=== PATIENT | male | born 1985 | race Caucasian/White ===

== ENCOUNTER 2018-05-23 12:51 | Emergency (ER) | payer SELFPAY ==
[~2018-05-23] VITALS: Ht 182.9 cm; Wt 80.9 kg
[2018-05-23 12:57] VITALS: TEMP 98
[2018-05-23] MEDS ORDERED: REMERON 15M15 MG/TA1 PO (13:17)
[2018-05-23 13:26] LABS: BASO # 0.1 (0.0-0.2); BASO % 0.8 % (0.0-2.0); EOS # 0.5 (0.0-0.7); GRAN # 6.6 (1.4-6.5); GRAN % 61.2 % (42.2-75.2); HEMATOCRIT 44.1 % (42.0-52.0); HEMOGLOBIN 14.7 g/dl (13.5-18.0); LYMPH # 2.7 (1.2-3.4); LYMPH % 25.3 % (20.0-51.0); MEAN CELL VOLUME 95 fl (80.0-100.0); MEAN CORPUSCULAR HEMOGLOBIN 32 pg (27.0-31.0); MEAN CORPUSCULAR HGB CONC 33 g/dl (33.0-37.0); MEAN PLATELET VOLUME 9.5 fl (7.4-10.4); MONO # 0.8 (0.1-0.6); MONO % 7.4 % (1.7-9.3); PLATELET COUNT 258 K/mm3 (130-400); RED BLOOD COUNT 4.66 M/mm3 (4.20-5.60)
[2018-05-23 13:45] LABS: ALANINE AMINOTRANSFERASE 31 U/L (21-72); ALBUMIN 4.2 gm/dL (3.5-5.0); ALKALINE PHOSPHATASE 59 U/L (50-136); AST,SGOT 27 U/L (15-37); BILIRUBIN,TOTAL 0.2 mg/dL (0.0-1.0); BLOOD UREA NITROGEN 12 mg/dL (9-20); CALCIUM 9.4 mg/dL (8.4-10.2); CARBON DIOXIDE 32 mmol/L (22-30); CREATININE, serum 0.87 mg/dL (0.66-1.25); GLUCOSE 97 mg/dL (74-106); LIPASE 149 U/L (23-300); SODIUM 142 mmol/L (137-145)
[2018-05-23 13:49] LABS: ANION GAP 4 mmol/L (7-16); C-REACTIVE PROTEIN < 0.5 mg/dL (0.0-0.9); CHLORIDE 106 mmol/L (98-107)
[2018-05-23] MEDS ORDERED: ULTRAM 50MG TAB50 MG PO (14:36)
[2018-05-23] MEDS ORDERED: ZOFRAN ODT4 MG PO (14:36)
[2018-05-23] MEDS ORDERED: PREDNISONE10 MG PO (14:36)
[2018-05-23 14:52] VITALS: BP 116/72; PULSE 76
== END 2018-05-23 15:01 | disposition home or self-care (01) ==
LOC: COL.ER 12:51
PROVIDERS: Emergency Medicine
DX: K50.90 Crohn's disease, unspecified, without complications (principal); F17.210 Nicotine dependence, cigarettes, uncomplicated; F12.90 Cannabis use, unspecified, uncomplicated
CPT/HCPCS: J2405; J2550; J3010; J7030; J7512

== ENCOUNTER 2018-08-20 13:17 | Emergency (ER) | payer SELFPAY ==
[~2018-08-20] VITALS: Ht 182.9 cm; Wt 84.1 kg
[~2018-08-20 13:17] MED LIST: PREDNISONE10 MG PO; REMERON 15M15 MG/TA1 PO; ULTRAM 50MG TAB50 MG PO; ZOFRAN ODT4 MG PO
[2018-08-20 13:28] VITALS: BP 126/74; TEMP 98.3
[2018-08-20] MEDS ORDERED: TYLENOL 500MG500 MG PO (15:41)
[2018-08-20 16:37] LABS: BASO # 0.1 (0.0-0.2); BASO % 0.4 % (0.0-2.0); EOS # 0.2 (0.0-0.7); EOS % 1.1 % (0-4.0); GRAN # 13.4 (1.4-6.5); GRAN % 78.1 % (42.2-75.2); HEMATOCRIT 45.6 % (42.0-52.0); HEMOGLOBIN 15.7 g/dl (13.5-18.0); LYMPH # 2.8 (1.2-3.4); LYMPH % 16.5 % (20.0-51.0); MEAN CELL VOLUME 93 fl (80.0-100.0); MEAN CORPUSCULAR HEMOGLOBIN 32 pg (27.0-31.0); MEAN CORPUSCULAR HGB CONC 34 g/dl (33.0-37.0); MEAN PLATELET VOLUME 9.5 fl (7.4-10.4); MONO # 0.6 (0.1-0.6); MONO % 3.5 % (1.7-9.3); PLATELET COUNT 298 K/mm3 (130-400); RED BLOOD COUNT 4.91 M/mm3 (4.20-5.60); REDCELL DISTRIBUTION WIDTH-CV 12.9 % (11.5-14.5)
[2018-08-20 16:45] LABS: ALBUMIN 4.6 gm/dL (3.5-5.0); BILIRUBIN,TOTAL 0.3 mg/dL (0.0-1.0); CREATININE, serum 0.74 mg/dL (0.66-1.25); TOTAL PROTEIN 7.9 gm/dL (6.4-8.2)
[2018-08-20] MEDS ORDERED: COMPAZINE 110 MG/TAB PO (17:45)
[2018-08-20 17:53] VITALS: PULSE 86
== END 2018-08-20 17:55 | disposition home or self-care (01) ==
LOC: COL.ER 13:17
PROVIDERS: Emergency Medicine
DX: J06.9 Acute upper respiratory infection, unspecified (principal); R51 Headache; R11.2 Nausea with vomiting, unspecified; F41.9 Anxiety disorder, unspecified; K50.90 Crohn's disease, unspecified, without complications; Z86.69 Personal history of other diseases of the nervous system and sense organs; Z88.1 Allergy status to other antibiotic agents
CPT/HCPCS: J0780; J1885; J7030

== ENCOUNTER 2019-10-13 19:48 | Emergency (ER) | payer SELFPAY ==
[~2019-10-13] VITALS: Ht 182.9 cm; Wt 81.8 kg
[~2019-10-13 19:48] MED LIST changes: +COMPAZINE 110 MG/TAB PO; +TYLENOL 500MG500 MG PO
[2019-10-13 20:39] LABS: COLLECTION METHOD CLEAN CATCH
[2019-10-13 20:49] LABS: BASO # 0.1 (0.0-0.2); BASO % 0.6 % (0.0-2.0); EOS # 0.3 (0.0-0.7); EOS % 3.2 % (0-4.0); GRAN # 5.9 (1.4-6.5); GRAN % 56.6 % (42.2-75.2); HEMATOCRIT 42.7 % (42.0-52.0); HEMOGLOBIN 14.5 g/dl (13.5-18.0); LYMPH # 3.2 (1.2-3.4); LYMPH % 30.7 % (20.0-51.0); MEAN CELL VOLUME 92 fl (80.0-100.0); MEAN CORPUSCULAR HEMOGLOBIN 31 pg (27.0-31.0); MEAN CORPUSCULAR HGB CONC 34 g/dl (33.0-37.0); MEAN PLATELET VOLUME 9.7 fl (7.4-10.4); MONO # 0.9 (0.1-0.6); MONO % 8.7 % (1.7-9.3); PLATELET COUNT 246 K/mm3 (130-400); RED BLOOD COUNT 4.64 M/mm3 (4.20-5.60)
[2019-10-13 20:52] LABS: MUCOUS Present /lpf; PH 5 (5-8); SQUAMOUS EPITHELIAL 0-2 /hpf; URINE APPEARANCE Clear; URINE BACTERIA None Seen /hpf; URINE BILIRUBIN Negative (NEGATIVE); URINE BLOOD 1+ (NEGATIVE); URINE COLOR Yellow; URINE GLUCOSE Negative (NEGATIVE); URINE KETONE Negative (NEGATIVE); URINE LEUKOCYTE ESTERASE Negative (NEGATIVE); URINE NITRATE Negative (NEGATIVE); URINE PROTEIN(semi-quant) Negative (NEGATIVE); URINE RBC 0-2 /hpf; URINE UROBILINOGEN Negative (NEGATIVE)
[2019-10-13 20:56] LABS: ALBUMIN 4.4 gm/dL (3.5-5.0); BILIRUBIN,TOTAL 0.4 mg/dL (0.0-1.0); C-REACTIVE PROTEIN 1.5 mg/dL (0.0-0.9); CALCIUM 9.6 mg/dL (8.4-10.2); CREATININE, serum 0.85 (0.66-1.25); POTASSIUM 3.6 mmol/L (3.4-5.0); TOTAL PROTEIN 7.3 gm/dL (6.4-8.2)
[2019-10-13] MEDS ORDERED: ZOFRAN 4MG T4 MG/TAB PO (22:58)
[2019-10-13] MEDS ORDERED: PHENERGAN 25 TA25 MG PO (22:58)
[2019-10-13] MEDS ORDERED: PRILOTC PO (23:01)
[2019-10-13 23:54] VITALS: BP 122/80; PULSE 85; TEMP 97.6
== END 2019-10-13 23:26 | disposition home or self-care (01) ==
LOC: COL.ER 19:48
PROVIDERS: Emergency Medicine
DX: R11.10 Vomiting, unspecified (principal); R19.7 Diarrhea, unspecified; K50.90 Crohn's disease, unspecified, without complications; G43.909 Migraine, unspecified, not intractable, without status migrainosus
CPT/HCPCS: J0780; J2270; J2405; J7030

== ENCOUNTER 2019-10-27 08:48 | Day surgery (SDC) | payer SELFPAY ==
[~2019-10-27] VITALS: Ht 182.9 cm; Wt 82.8 kg
[~2019-10-27 08:48] MED LIST changes: +PHENERGAN 25 TA25 MG PO; +PRILOTC PO; +ZOFRAN 4MG T4 MG/TAB PO
[2019-10-27 09:20] VITALS: BP 119/79; PULSE 85; TEMP 98.3
[2019-10-27] MEDS ORDERED: PENTASA500 MG PO (09:28)
[2019-10-27] MEDS ORDERED: PREDNISONE 5MG5 MG PO (09:29)
[2019-10-27] MEDS ORDERED: PROTONIX 40MG T40 MG PO (10:28)
[2019-10-27 10:45] VITALS: BP 115/60; PULSE 74; TEMP 98.4
--- NOTE | 2019-10-27 10:45 | NUR ---
Pt to [facility] via cart. Pt awake and alert. Pt ambulates to recliner with stand by assistance. Warm blanket provided. VSS. Muffin and juice given per pt request. Pt denies pain or nausea. Will continue to monitor. Call light within reach.
[2019-10-27 11:00] VITALS: BP 104/79; PULSE 92
--- NOTE | 2019-10-27 11:00 | NUR ---
Pt continues to rest. Tolerating PO food and fluids. Denies needs. Call light within reach.
[2019-10-27 11:15] VITALS: BP 94/57; PULSE 73
--- NOTE | 2019-10-27 11:15 | NUR ---
Pt continues to rest. Denies needs. Call light within reach.
--- NOTE | 2019-10-27 11:30 | NUR ---
Discharge instructions reviewed. Pt voices understanding. IV site discontinued with all parts intact. Pt up to dress. Call light within reach.
--- NOTE | 2019-10-27 11:50 | NUR ---
Pt escorted to private car via wheel chair. Pt accompanied home by his mother.
== END 2019-10-27 11:50 | disposition home or self-care (01) ==
LOC: SDCO 08:48
DX: K92.1 Melena (principal); K50.90 Crohn's disease, unspecified, without complications; K21.0 Gastro-esophageal reflux disease with esophagitis; K29.50 Unspecified chronic gastritis without bleeding; K31.89 Other diseases of stomach and duodenum; G43.909 Migraine, unspecified, not intractable, without status migrainosus; R19.7 Diarrhea, unspecified; Z88.1 Allergy status to other antibiotic agents; Z88.8 Allergy status to other drugs, medicaments and biological substances; Z79.899 Other long term (current) drug therapy; Z87.891 Personal history of nicotine dependence; Z85.038 Personal history of other malignant neoplasm of large intestine
CPT/HCPCS: J2250; J3010; J7030